=== PATIENT | female | born 1945 | race Caucasian/White ===

== ENCOUNTER 2017-03-14 14:39 | Day surgery (SDC) | payer MEDICARE ==
[~2017-03-14 14:39] MED LIST: AMITIZA; AMLO5 PO; Bactrim Ds Tab1 EACH PO; CARV6.25; CATAFLAN PO; CELE200 PO; CHOL10002; CLON.5 PO; Coq-10100 MG PO; DOXA4 PO; Dyazide 37.5-21 EACH PO; EPIPEN0.3 MG/0.3 IM; ESCI10; ESOM20; ESOM20 PO; FAMO20; FISH1000 PO; GLUC500 PO; HYDACE5 PO; HYDR1TAB94 PO; Hair, Skin & N1 EACH PO; LABE100 PO; LEVFLO250 PO; LEVFLO500 PO; LOSARTAN POTAS100 MG PO; MAGCIT300 PO; MAXIDE PO; METO10; METR500 PO; MULVITMINE PO; Prilosec Otc20 MG; SUCR1; TEGA6
[2017-11-11] MEDS ORDERED: Maxidex15 ML ×2 (13:10→13:11)
== END 2017-03-14 23:31 | disposition home or self-care (01) ==
LOC: WOUND 14:39
PROC: 2W1QX6Z Compression of Right Lower Leg using Pressure Dressing (ICD-10-PCS; principal; 2017-03-14)
DX: Z48.00 Encounter for change or removal of nonsurgical wound dressing (principal); L02.415 Cutaneous abscess of right lower limb; Z98.84 Bariatric surgery status

== ENCOUNTER 2017-03-18 00:15 | Day surgery (SDC) | payer MEDICARE ==
[2017-11-11] MEDS ORDERED: Maxidex15 ML ×2 (13:10→13:11)
== END 2017-03-18 15:09 | disposition home or self-care (01) ==
LOC: WOUND 00:15
PROC: 2W1QX6Z Compression of Right Lower Leg using Pressure Dressing (ICD-10-PCS; principal; 2017-03-18)
DX: Z48.00 Encounter for change or removal of nonsurgical wound dressing (principal); L02.415 Cutaneous abscess of right lower limb; L97.812 Non-pressure chronic ulcer of other part of right lower leg with fat layer exposed; Z98.84 Bariatric surgery status; Z86.14 Personal history of Methicillin resistant Staphylococcus aureus infection
CPT/HCPCS: G0463

== ENCOUNTER 2017-03-21 13:31 | Day surgery (SDC) | payer MEDICARE ==
[2017-11-11] MEDS ORDERED: Maxidex15 ML ×2 (13:10→13:11)
== END 2017-03-21 17:07 | disposition home or self-care (01) ==
LOC: WOUND 13:31
PROC: 2W1QX6Z Compression of Right Lower Leg using Pressure Dressing (ICD-10-PCS; principal; 2017-03-21)
DX: Z48.00 Encounter for change or removal of nonsurgical wound dressing (principal); L02.415 Cutaneous abscess of right lower limb; Z98.84 Bariatric surgery status

== ENCOUNTER 2017-03-25 13:56 | Day surgery (SDC) | payer MEDICARE ==
[2017-11-11] MEDS ORDERED: Maxidex15 ML ×2 (13:10→13:11)
== END 2017-03-25 15:56 | disposition home or self-care (01) ==
LOC: WOUND 13:56
PROC: 2W1QX6Z Compression of Right Lower Leg using Pressure Dressing (ICD-10-PCS; principal; 2017-03-25)
DX: Z48.00 Encounter for change or removal of nonsurgical wound dressing (principal); L02.415 Cutaneous abscess of right lower limb; Z98.84 Bariatric surgery status
CPT/HCPCS: G0463

== ENCOUNTER 2017-03-28 13:40 | Day surgery (SDC) | payer MEDICARE ==
[2017-11-11] MEDS ORDERED: Maxidex15 ML ×2 (13:10→13:11)
== END 2017-03-28 14:44 | disposition home or self-care (01) ==
LOC: WOUND 13:40
PROC: 2W1QX6Z Compression of Right Lower Leg using Pressure Dressing (ICD-10-PCS; principal; 2017-03-28)
DX: Z48.00 Encounter for change or removal of nonsurgical wound dressing (principal); L02.415 Cutaneous abscess of right lower limb; Z98.84 Bariatric surgery status

== ENCOUNTER 2017-04-01 00:44 | Day surgery (SDC) | payer MEDICARE ==
[2017-11-11] MEDS ORDERED: Maxidex15 ML ×2 (13:10→13:11)
== END 2017-04-01 22:50 | disposition home or self-care (01) ==
LOC: WOUND 00:44
PROC: 2W1QX6Z Compression of Right Lower Leg using Pressure Dressing (ICD-10-PCS; principal; 2017-04-01)
DX: Z48.00 Encounter for change or removal of nonsurgical wound dressing (principal); L02.415 Cutaneous abscess of right lower limb; Z98.84 Bariatric surgery status
CPT/HCPCS: 87081; G0463

== ENCOUNTER 2017-04-04 13:20 | Day surgery (SDC) | payer MEDICARE ==
[2017-11-11] MEDS ORDERED: Maxidex15 ML ×2 (13:10→13:11)
== END 2017-04-04 14:40 | disposition home or self-care (01) ==
LOC: WOUND 13:20
PROC: 2W1QX6Z Compression of Right Lower Leg using Pressure Dressing (ICD-10-PCS; principal; 2017-04-04)
DX: Z48.00 Encounter for change or removal of nonsurgical wound dressing (principal); L02.415 Cutaneous abscess of right lower limb; Z98.84 Bariatric surgery status

== ENCOUNTER 2017-04-08 14:00 | Day surgery (SDC) | payer MEDICARE ==
[2017-11-11] MEDS ORDERED: Maxidex15 ML ×2 (13:10→13:11)
== END 2017-04-08 15:13 | disposition home or self-care (01) ==
LOC: WOUND 14:00
PROC: 2W1QX6Z Compression of Right Lower Leg using Pressure Dressing (ICD-10-PCS; principal; 2017-04-08)
DX: Z48.00 Encounter for change or removal of nonsurgical wound dressing (principal); L02.415 Cutaneous abscess of right lower limb; Z98.84 Bariatric surgery status
CPT/HCPCS: G0463

== ENCOUNTER 2017-04-15 10:04 | Day surgery (SDC) | payer MEDICARE ==
[2017-11-11] MEDS ORDERED: Maxidex15 ML ×2 (13:10→13:11)
== END 2017-04-15 22:59 | disposition home or self-care (01) ==
LOC: WOUND 10:04
DX: Z48.00 Encounter for change or removal of nonsurgical wound dressing (principal); L02.415 Cutaneous abscess of right lower limb; Z98.84 Bariatric surgery status
CPT/HCPCS: G0463

== ENCOUNTER 2017-04-21 00:22 | Day surgery (SDC) | payer MEDICARE ==
[2017-11-11] MEDS ORDERED: Maxidex15 ML ×2 (13:10→13:11)
== END 2017-04-21 14:22 | disposition home or self-care (01) ==
LOC: WOUND 00:22
PROC: 2W1QX6Z Compression of Right Lower Leg using Pressure Dressing (ICD-10-PCS; principal; 2017-04-21)
PROC: 0HBKXZZ Excision of Right Lower Leg Skin, External Approach (ICD-10-PCS; principal; 2017-04-21)
DX: Z48.00 Encounter for change or removal of nonsurgical wound dressing (principal); L02.415 Cutaneous abscess of right lower limb; Z98.84 Bariatric surgery status
CPT/HCPCS: 87081; G0463

== ENCOUNTER 2017-04-28 00:20 | Day surgery (SDC) | payer MEDICARE ==
[2017-11-11] MEDS ORDERED: Maxidex15 ML ×2 (13:10→13:11)
== END 2017-04-28 14:34 | disposition home or self-care (01) ==
LOC: WOUND 00:20
PROC: 2W1QX6Z Compression of Right Lower Leg using Pressure Dressing (ICD-10-PCS; principal; 2017-04-28)
DX: Z48.00 Encounter for change or removal of nonsurgical wound dressing (principal); L02.415 Cutaneous abscess of right lower limb; Z98.84 Bariatric surgery status
CPT/HCPCS: G0463

== ENCOUNTER 2017-05-06 00:28 | Day surgery (SDC) | payer MEDICARE ==
[2017-11-11] MEDS ORDERED: Maxidex15 ML ×2 (13:10→13:11)
== END 2017-05-06 15:12 | disposition home or self-care (01) ==
LOC: WOUND 00:28
PROC: 0HBKXZZ Excision of Right Lower Leg Skin, External Approach (ICD-10-PCS; principal; 2017-05-06)
DX: Z48.00 Encounter for change or removal of nonsurgical wound dressing (principal); L02.415 Cutaneous abscess of right lower limb; Z98.84 Bariatric surgery status
CPT/HCPCS: G0463

== ENCOUNTER 2017-05-13 11:07 | Day surgery (SDC) | payer MEDICARE ==
[2017-11-11] MEDS ORDERED: Maxidex15 ML ×2 (13:10→13:11)
== END 2017-05-13 22:43 | disposition home or self-care (01) ==
LOC: WOUND 11:07
PROC: 0HBKXZZ Excision of Right Lower Leg Skin, External Approach (ICD-10-PCS; principal; 2017-05-13)
DX: L02.415 Cutaneous abscess of right lower limb (principal); Z98.84 Bariatric surgery status; S81.801A Unspecified open wound, right lower leg, initial encounter
CPT/HCPCS: G0463

== ENCOUNTER 2017-05-20 13:55 | Day surgery (SDC) | payer MEDICARE ==
[2017-11-11] MEDS ORDERED: Maxidex15 ML ×2 (13:10→13:11)
== END 2017-05-20 23:02 | disposition home or self-care (01) ==
LOC: WOUND 13:55
PROC: 2W1QX6Z Compression of Right Lower Leg using Pressure Dressing (ICD-10-PCS; principal; 2017-05-20)
DX: S81.801A Unspecified open wound, right lower leg, initial encounter (principal); L02.415 Cutaneous abscess of right lower limb; Z98.84 Bariatric surgery status
CPT/HCPCS: G0463

== ENCOUNTER 2017-05-27 14:00 | Day surgery (SDC) | payer MEDICARE ==
[2017-11-11] MEDS ORDERED: Maxidex15 ML ×2 (13:10→13:11)
== END 2017-05-27 22:38 | disposition home or self-care (01) ==
LOC: WOUND 14:00
PROC: 0HBKXZZ Excision of Right Lower Leg Skin, External Approach (ICD-10-PCS; principal; 2017-05-27)
DX: L02.415 Cutaneous abscess of right lower limb (principal); Z98.84 Bariatric surgery status
CPT/HCPCS: G0463

== ENCOUNTER 2017-06-03 13:56 | Day surgery (SDC) | payer MEDICARE ==
[2017-11-11] MEDS ORDERED: Maxidex15 ML ×2 (13:10→13:11)
== END 2017-06-03 14:49 | disposition home or self-care (01) ==
LOC: WOUND 13:56
PROC: 2W1QX6Z Compression of Right Lower Leg using Pressure Dressing (ICD-10-PCS; principal; 2017-06-03)
DX: Z48.00 Encounter for change or removal of nonsurgical wound dressing (principal); L02.415 Cutaneous abscess of right lower limb; Z98.84 Bariatric surgery status; Z86.14 Personal history of Methicillin resistant Staphylococcus aureus infection

== ENCOUNTER 2017-06-10 14:01 | Day surgery (SDC) | payer MEDICARE ==
[2017-11-11] MEDS ORDERED: Maxidex15 ML ×2 (13:10→13:11)
== END 2017-06-10 14:42 | disposition home or self-care (01) ==
LOC: WOUND 14:01
DX: Z48.01 Encounter for change or removal of surgical wound dressing (principal); T81.89XD Other complications of procedures, not elsewhere classified, subsequent encounter; L02.415 Cutaneous abscess of right lower limb; Z98.84 Bariatric surgery status; Z86.14 Personal history of Methicillin resistant Staphylococcus aureus infection
CPT/HCPCS: G0463

== ENCOUNTER 2017-06-17 13:58 | Day surgery (SDC) | payer MEDICARE | END 2017-06-17 15:11 | disposition home or self-care (01) | LOC: WOUND 13:58 | DX: L02.415 Cutaneous abscess of right lower limb (principal); Z98.84 Bariatric surgery status; R60.0 Localized edema | CPT/HCPCS: G0463 ==

== ENCOUNTER 2017-06-24 13:51 | Day surgery (SDC) | payer MEDICARE | END 2017-06-24 22:35 | disposition home or self-care (01) | LOC: WOUND 13:51 | DX: Z48.00 Encounter for change or removal of nonsurgical wound dressing (principal); L02.415 Cutaneous abscess of right lower limb; Z98.84 Bariatric surgery status | CPT/HCPCS: G0463 ==